=== PATIENT | male | born 1990 | race Caucasian/White ===

== ENCOUNTER 2021-09-25 18:11 | Emergency (ER) | payer OTHER, BC ==
[2021-09-25] MEDS ORDERED: Cyclobenzaprine 10 MG TAB ONE (18:56)
[2021-09-25] MEDS ORDERED: Ketorolac Tromethamine 30 MG/ML VIAL ONE (18:56)
== END 2021-09-25 19:55 | disposition home or self-care (01) ==
LOC: CSHERS 18:11
DX: M25.552 Pain in left hip (principal); V89.2XXA Person injured in unspecified motor-vehicle accident, traffic, initial encounter
CPT/HCPCS: 96372; J1885

== ENCOUNTER 2022-08-20 20:12 | Emergency (ER) | payer BC ==
[2022-08-20] MEDS ORDERED: Ketorolac Tromethamine 30 MG/ML VIAL ONE (21:44)
== END 2022-08-20 21:53 | disposition home or self-care (01) ==
LOC: CSHERS 20:12
DX: M62.89 Other specified disorders of muscle (principal); M54.50 Low back pain, unspecified
CPT/HCPCS: 96372; 99283; J1885